=== PATIENT | male | born 1985 | race Caucasian/White ===

== ENCOUNTER 2017-07-06 15:36 | Emergency (ER) | payer OTHER ==
[2017-07-06 15:45] VITALS: BP 142/72; BMI 28.8
--- NOTE | 2017-07-06 16:09 | DR.MBACK ---
HPI - Time Seen Time seen: 16:00 - PCP Primary Care Physician: nfd - Complaint Chief Complaint Doctors Comments: Patient presents via EMS with c/o low back pain this AM. He reports that he was unable to move his lower extremities. This happened twice previously.He denies any trauma. Chief Complaint:: Patient stated that he was working on a high chair and was bent over for a good while and he felt his back catch. He stated that he got down on his hands and knees and rolled to the couch to lay down for about 4.5-5 hours. He also stated that he took some Motrin and Percocet that his momma gave him and he was able to get some relief. - Source History Provided: Patient - Mode of Arrival Mode of Arrival: EMS - Timing Onset of Chief Complaint: 07/06/17 PMH - PMH Past Medical History: No Past Surgical History: No - Family History History of Family Medical Conditions: Yes Family Medical History: Hypertension - Social History Does patient currently use any type of tobacco product: No Have you used tobacco products in the last 12 months: No Type of Tobacco Use: None Does any household member use tobacco: No Alcohol Use: Rarely Do you use any recreational Drugs:: No Lives With: Family Lives Where: Home - infectious screening In the last 2 months have you had wt loss of >10#?: NO Have you had fever, night sweats or hemotysis?: No Have you traveled outside the country in the last 6 months?: No Isolation: Standard ROS - Review of Systems Eyes: No Symptoms Reported ENTM: No Symptoms Reported Respiratoy: No Symptoms Reported Cardiovascular: No Symptoms Reported Gastrointestinal/Abdominal: No Symptoms Reported Genitourinary: No Symptoms Reported Neurological: No Symptoms Reported Musculoskeletal: No Symptoms Reported Integumentary: No Symptoms Reported Hematologic/Lymphatic: No Symptoms Reported Endocrine: No Symptoms Reported Psychiatric: No Symptoms Reported All Other Systems: Reviewed and Negative PE - Vital Signs Vitals: Temperature 98.2 F Pulse Rate 79 Respiratory Rate 20 Blood Pressure 142/72 O2 Sat by Pulse Oximetry 100 - General General Appearance: Alert, In No Apparent Distress - Head Head Exam: Normal Inspection, Atraumatic - Eyes Eye exam: Normal Appearance, PERRL, EOMI - ENT ENT Exam: Normal Exam - Chest Chest Inspection: Normal Inspection, Symmetric Chest Wall Rise - Respiratory Respiratory Exam: Normal Lung Sounds Bilat Respiratory Exam: Bilateral Clear to Auscultation - Cardiovascular Cardiovascular Exam: Regular Rate, Normal Rhythm - Abdominal Exam Abdominal Exam: Normal Inspection, Normal Bowel Sounds Abdominal Tenderness: negative: RUQ, RLQ, LUQ, LLQ, Epigastrium, Suprapubic, Diffuse, Mild, Moderate, Severe, Other - Rectal Rectal Exam: Deferred - Genitourinary Exam: Male: Deferred - Extremities Extremities Exam: Normal Inspection, Full ROM - Back Back Exam: Normal Inspection - Neurological Neurological Exam: Alert, Oriented X3, CN II-XII Intact - Psychiatric Psychiatric Exam: Normal Affect, Normal Mood - Skin Skin Exam: Warm, Dry ROR - Labs Reviewed Result Diagrams: 07/06/17 16:17 07/06/17 16:17 Laboratory: WBC 8.6 X10^3/uL (3.6-10.0) 07/06/17 16:17 RBC 5.20 X10^6/uL (4.7-6.0) 07/06/17 16:17 Hgb 15.1 g/dL (13.5-18.0) 07/06/17 16:17 Hct 44.0 % (42.0-54.0) 07/06/17 16:17 MCV 84.6 fL (80.0-100.0) 07/06/17 16:17 MCH 29.0 pg (27.0-34.0) 07/06/17 16:17 MCHC 34.3 g/dL (33.0-35.0) 07/06/17 16:17 RDW 14.1 % (11.6-16.5) 07/06/17 16:17 Plt Count 181 X10^3/uL (150.0-450.0) 07/06/17 16:17 MPV 8.6 fL (7.4-11.0) 07/06/17 16:17 Neut % 79.3 % (42.0-75.0) H 07/06/17 16:17 Lymph % 10.9 % (21.0-51.0) L 07/06/17 16:17 Bartholomew % 7.3 % (0.0-13.0) 07/06/17 16:17 Eos % 1.7 % (0.9-2.9) 07/06/17 16:17 Baso % 0.8 % (0.2-1.0) 07/06/17 16:17 Neut # 6.8 x10^3/uL (2.2-4.8) H 07/06/17 16:17 Lymph # 0.9 X10^3/uL (1.3-2.9) L 07/06/17 16:17 Bartholomew # 0.6 x10^3/uL (0.3-0.8) 07/06/17 16:17 Eos # 0.1 x10^3/uL (0.0-0.2) 07/06/17 16:17 Baso # 0.1 X10^3/uL (0.0-0.1) 07/06/17 16:17 Absolute Nucleated RBC 0.0 /100WBC 07/06/17 16:17 Sodium 142 mmol/L (136-145) 07/06/17 16:17 Corrected Sodium TNP 07/06/17 16:17 Potassium 3.8 mmol/L (3.5-5.1) 07/06/17 16:17 Chloride 106 mmol/L (98-107) 07/06/17 16:17 Carbon Dioxide 28.6 mmol/L (21-32) 07/06/17 16:17 BUN 14 mg/dL (7-18) 07/06/17 16:17 Creatinine 1.04 mg/dL (0.70-1.30) 07/06/17 16:17 Est GFR (MDRD) Af Amer > 60 (>60) 07/06/17 16:17 Est GFR (MDRD) Non-Af > 60 (>60) 07/06/17 16:17 Glucose 102 mg/dL (65-99) H 07/06/17 16:17 Calcium 8.1 mg/dL (8.5-10.1) L 07/06/17 16:17 Corrected Calcium TNP 07/06/17 16:17 Total Bilirubin 0.60 mg/dL (0.2-1.0) 07/06/17 16:17 AST 27 Units/L (15-37) 07/06/17 16:17 ALT 29 Units/L (12-78) 07/06/17 16:17 Alkaline Phosphatase 70 Units/L (46-116) 07/06/17 16:17 Total Protein 6.7 g/dL (6.4-8.2) 07/06/17 16:17 Albumin 3.8 g/dL (3.4-5.0) 07/06/17 16:17 Globulin 2.9 g/dL (2.5-4.5) 07/06/17 16:17 Albumin/Globulin Ratio 1.3 Ratio (1.1-2.1) 07/06/17 16:17 - XRAY XRAY Interpreted by: Radiologist (Lumbar spine CT w/o:L5-S1 level: theree is a central disc protrusion wihch effaces the tehcal sac and displaces the right S1 nerve root. However, the neural foramina are patent. Bilaterral facet arthropathy is present.) - Diagnosis Discharge Problem: L5-S1,central disc protrusion - Discharge Plan Condition: Stable - Follow ups/Referrals Follow ups/Referrals: Jimmy Canales [Primary Care Provider] - 3 days - Instructions
[2017-07-06 16:27] LABS: BASOPHILS # (AUTO) 0.1 X10^3/uL (0.0-0.1); BASOPHILS % (AUTO) 0.8 % (0.2-1.0); EOSINOPHILS # (AUTO) 0.1 x10^3/uL (0.0-0.2); EOSINOPHILS % (AUTO) 1.7 % (0.9-2.9); HEMOGLOBIN 15.1 g/dL (13.5-18.0); LYMPHOCYTES # (AUTO) 0.9 X10^3/uL (1.3-2.9); LYMPHOCYTES % (AUTO) 10.9 % (21.0-51.0); MEAN CORPUSCULAR HGB CONC 34.3 g/dL (33.0-35.0); MEAN CORPUSCULAR VOLUME 84.6 fL (80.0-100.0); MEAN PLATELET VOLUME 8.6 fL (7.4-11.0); MONOCYTES # (AUTO) 0.6 x10^3/uL (0.3-0.8); MONOCYTES % (AUTO) 7.3 % (0.0-13.0); NEUTROPHILS # (AUTO) 6.8 x10^3/uL (2.2-4.8); NEUTROPHILS % (AUTO) 79.3 % (42.0-75.0); PLATELET COUNT 181 X10^3/uL (150.0-450.0); RED CELL DISTRIBUTION WIDTH 14.1 % (11.6-16.5); WHITE BLOOD COUNT 8.6 X10^3/uL (3.6-10.0)
[2017-07-06 16:35] LABS: ALANINE AMINOTRANSFERASE 29 Units/L (12-78); ALBUMIN 3.8 g/dL (3.4-5.0); ALKALINE PHOSPHATASE 70 Units/L (46-116); ASPARTATE AMINO TRANSFERASE 27 Units/L (15-37); BLOOD UREA NITROGEN 14 mg/dL (7-18); CALCIUM 8.1 mg/dL (8.5-10.1); CARBON DIOXIDE 28.6 mmol/L (21-32); CHLORIDE 106 mmol/L (98-107); CREATININE 1.04 mg/dL (0.70-1.30); GLUCOSE 102 mg/dL (65-99); SODIUM 142 mmol/L (136-145); TOTAL PROTEIN 6.7 g/dL (6.4-8.2); eGFR BLACK RACES > 60 (>60); eGFR NON BLACK RACES > 60 (>60)
--- NOTE | 2017-07-06 16:50 | CT ---
HISTORY: Low back pain Study: Lumbar spine CT without contrast Comparison: None Technique: Axial non contrast images with coronal and sagittal reformats. Dose reduction procedures were used with MA/kv adjusted for body size. Findings: The alignment is normal. The lumbar vertebral bodies are of average height. There is mild anterior w edge compression of T12, age indeterminate. The pedicles, spinous processes, and posterior elements appear intact. The SI joints are intact. That portion of the sacrum visualized was intact. The disc levels were evaluated as follows: L1-2 level: No evidence for compressive disc disease. The neural foramina are patent. The joints are normal. L2-3 level: No evidence for compressive disc disease. The neural foramina are patent. The joints are normal. L3-4 level: No evidence for compressive disc disease. The neural foramina are patent. Mild bilateral facet arthropathy is present. L4-5 level: No evidence for compressive disc disease. The neural foramina are patent. Mild bilateral facet arthropathy is present. L5-S1 level: There is a central disc protrusion which effaces the thecal sac and displaces the right S1 nerve root. However the neural foramina are patent. Bilateral facet arthropathy is present. IMPRESSION: As above Reported By:
[2017-07-06] MEDS ORDERED: TORADOL 60 MG VIAL IM ONE (17:18)
[2017-07-06] MEDS ORDERED: TORADOL 60 MG VIAL ONE (17:19)
== END 2017-07-06 17:50 | disposition home or self-care (01) ==
LOC: ER 15:36
DX: M51.26 Other intervertebral disc displacement, lumbar region (principal)
CPT/HCPCS: 36415; 72131; 80053; 85025; 96372; 99282; J1885